=== PATIENT | female | born 1995 | race Caucasian/White ===

== ENCOUNTER 2018-07-13 11:22 | Emergency (ER) | payer BC, MEDICAID ==
[~2018-07-13] VITALS: Ht 165.1 cm; Wt 99.8 kg
[~2018-07-13 11:22] MED LIST: ALBU0.084
[2018-07-13 12:10] VITALS: BP 134/75
[2018-07-13] MEDS ORDERED: KETOROLAC TROMETH 60MG/2ML VIAL IM ONE (14:15)
[2018-07-13] MEDS ORDERED: METHOCARBAMOL 500 MG TAB PO ONE (14:15)
== END 2018-07-13 15:10 | disposition home or self-care (01) ==
LOC: ER 11:22
DX: S13.9XXA Sprain of joints and ligaments of unspecified parts of neck, initial encounter (principal); X50.1XXA Overexertion from prolonged static or awkward postures, initial encounter; Y93.89 Activity, other specified; Y92.89 Other specified places as the place of occurrence of the external cause; Y99.8 Other external cause status; F12.10 Cannabis abuse, uncomplicated
CPT/HCPCS: 72040; 96372; 99283; J1885